=== PATIENT | female | born 1990 | race Caucasian/White ===

== ENCOUNTER 2023-11-03 22:36 | Emergency (ER) | payer OTHER ==
[~2023-11-03] VITALS: Ht 157.5 cm; Wt 113.4 kg
[2023-11-03 22:50] VITALS: BP 167/93; PULSE 89; RESP 18; TEMP 98; O2SAT 100
[2023-11-03 22:52] VITALS: BP 167/93; PULSE 89; RESP 18; TEMP 98
[2023-11-03 23:00] VITALS: O2SAT 98
[2023-11-04] MEDS ORDERED: NAPR-337 PO (00:21)
== END 2023-11-04 00:26 | disposition home or self-care (01) ==
LOC: MED 22:36
DX: S13.4XXA Sprain of ligaments of cervical spine, initial encounter (principal); M54.50 Low back pain, unspecified; Z79.899 Other long term (current) drug therapy; V89.2XXA Person injured in unspecified motor-vehicle accident, traffic, initial encounter; Y93.89 Activity, other specified; Y92.410 Unspecified street and highway as the place of occurrence of the external cause; Y99.8 Other external cause status
CPT/HCPCS: 72050; 72100; 99284